=== PATIENT | male | born 1935 | race Caucasian/White ===

== ENCOUNTER 2020-08-08 10:03 | Inpatient (IN) | payer MEDICARE, BC, OTHER ==
--- NOTE | 2020-08-08 10:40 | ED ---
General Adult HPI - General Chief complaint: Altered Mental Status Stated complaint: Altered Time Seen by Provider: 08/08/20 10:21 Source: patient, EMS, RN notes reviewed Mode of arrival: EMS Limitations: altered mental status - History of Present Illness Initial comments: Patient is a pleasant 85-year-old male presenting to the emergency department with concerns for altered mental status. Onset is unclear. Patient states he feels fine and has no complaints. Patient is a poor historian. Patient denies any pain. No reported fever. Patient does not feel weak. Patient reportedly has mentioned with worsening of symptoms. She reportedly has been more aggressive recently. - Related Data Home Medications Medication Instructions Recorded Confirmed Divalproex Sodium [Depakote] 125 mg PO BID 08/08/20 08/08/20 Dolutegravir/Rilpivirine [Juluca 1 tab PO DAILY 08/08/20 08/08/20 50-25 mg Tablet] Ferrous Sulfate [Feosol] 325 mg PO DAILY 08/08/20 08/08/20 Sennosides [Senna] 8.6 mg PO DAILY 08/08/20 08/08/20 Sulfamethox-Tmp 800-160Mg [Bactrim 1 tab PO MOWEFR 08/08/20 08/08/20 DS 800-160 mg] Allergies Allergy/AdvReac Type Severity Reaction Status Date / Time metal AdvReac Rash/Hives Uncoded 08/08/20 11:34 Review of Systems ROS Statement: Those systems with pertinent positive or pertinent negative responses have been documented in the HPI. ROS Other: All systems not noted in ROS Statement are negative. Constitutional: Denies: fever Eyes: Denies: eye pain ENT: Denies: ear pain Respiratory: Denies: cough Cardiovascular: Denies: chest pain Endocrine: Denies: fatigue Gastrointestinal: Denies: abdominal pain Genitourinary: Denies: urgency Musculoskeletal: Denies: back pain Skin: Denies: rash Neurological: Reports: as per HPI Past Medical History Past Medical History: Dementia Additional Past Medical History / Comment(s): HIV+ History of Any Multi-Drug Resistant Organisms: None Reported Past Surgical History: Hernia Repair Past Psychological History: No Psychological Hx Reported Smoking Status: Never smoker Past Alcohol Use History: None Reported Past Drug Use History: None Reported General Exam Limitations: no limitations, altered mental status General appearance: alert Head exam: Present: normocephalic Eye exam: Present: normal appearance, PERRL ENT exam: Present: normal oropharynx Neck exam: Present: normal inspection Respiratory exam: Present: normal lung sounds bilaterally Cardiovascular Exam: Present: regular rate, normal rhythm GI/Abdominal exam: Present: soft. Absent: tenderness Extremities exam: Present: normal inspection Neurological exam: Present: alert, CN II-XII intact. Absent: motor sensory deficit Expanded Neurological exam: Present: protecting the airway Patient oriented to: Present: person. Absent: place (Only knows he is in the hospital, unclear which city), time Speech: Present: fluid speech Motor strength exam: RUE: 5, LUE: 5, RLE: 5, LLE: 5 Eye Response: (4) open spontaneously Motor Response: (6) obeys commands Verbal Response: (4) confused conversation Psychiatric exam: Present: normal affect, normal mood Skin exam: Present: normal color Course Vital Signs 08/08/20 10:09 Temperature 98.1 F Pulse Rate 90 Respiratory 18 Rate Blood Pressure 131/67 O2 Sat by Pulse 97 Oximetry EKG Findings - EKG Comments: EKG Findings:: Normal sinus rhythm with rate of 80. W[place] 172. QRS 98. QT 362. QTC 417. Left axis. Normal QRS. No acute ST change. Medical Decision Making - Medical Decision Making Patient reevaluated and resting comfortably in bed. Patient is more interactive than previously. Patient updated on results and plan. Case was discussed in detail with , covering with [facility] who will admit for Dr. Chavez, who admits for Dr. Turpin. - Lab Data Result diagrams: 08/08/20 12:16 08/08/20 12:16 Lab Results 08/08/20 08/08/20 08/08/20 Range/Units 12:03 12:16 12:16 WBC 12.8 H (3.8-10.6) k/uL RBC 3.13 L (4.30-5.90) m/uL Hgb 9.4 L (13.0-17.5) gm/dL Hct 28.0 L (39.0-53.0) % MCV 89.4 (80.0-100.0) fL MCH 30.1 (25.0-35.0) pg MCHC 33.7 (31.0-37.0) g/dL RDW 13.7 (11.5-15.5) % Plt Count 309 (150-450) k/uL MPV 7.3 Neutrophils % 63 % Lymphocytes % 29 % Monocytes % 5 % Eosinophils % 0 % Basophils % 0 % Neutrophils # 8.1 H (1.3-7.7) k/uL Lymphocytes # 3.8 (1.0-4.8) k/uL Monocytes # 0.6 (0-1.0) k/uL Eosinophils # 0.0 (0-0.7) k/uL Basophils # 0.0 (0-0.2) k/uL PT 10.6 (9.0-12.0) sec INR 1.0 (<1.2) APTT 21.4 L (22.0-30.0) sec Sodium (137-145) mmol/L Potassium (3.5-5.1) mmol/L Chloride (98-107) mmol/L Carbon Dioxide (22-30) mmol/L Anion Gap mmol/L BUN (9-20) mg/dL Creatinine (0.66-1.25) mg/dL Est GFR (CKD-EPI)AfAm (>60 ml/min/1.73 sqM) Est GFR (CKD-EPI)NonAf (>60 ml/min/1.73 sqM) Glucose (74-99) mg/dL Calcium (8.4-10.2) mg/dL Total Bilirubin (0.2-1.3) mg/dL AST (17-59) U/L ALT (4-49) U/L Alkaline Phosphatase (38-126) U/L Ammonia (<30) umol/L Troponin I (0.000-0.034) ng/mL Total Protein (6.3-8.2) g/dL Albumin (3.5-5.0) g/dL Urine Color Yellow Urine Appearance Clear (Clear) Urine pH 5.5 (5.0-8.0) Ur Specific [place] 1.016 (1.001-1.035) Urine Protein Negative (Negative) Urine Glucose (UA) Negative (Negative) Urine Ketones Negative (Negative) Urine Blood Negative (Negative) Urine Nitrite Negative (Negative) Urine Bilirubin Negative (Negative) Urine Urobilinogen <2.0 (<2.0) mg/dL Ur Leukocyte Esterase Negative (Negative) Urine Opiates Screen Not Detected (NotDetected) Ur Oxycodone Screen Not Detected (NotDetected) Urine Methadone Screen Not Detected (NotDetected) Ur Propoxyphene Screen Not Detected (NotDetected) Ur Barbiturates Screen Not Detected (NotDetected) Valproic Acid ug/mL U Tricyclic Antidepress Not Detected (NotDetected) Ur Phencyclidine Scrn Not Detected (NotDetected) Ur Amphetamines Screen Not Detected (NotDetected) U Methamphetamines Scrn Not Detected (NotDetected) U Benzodiazepines Scrn Not Detected (NotDetected) Urine Cocaine Screen Not Detected (NotDetected) U Marijuana (THC) Screen Not Detected (NotDetected) 08/08/20 08/08/20 08/08/20 Range/Units 12:16 12:16 12:16 WBC (3.8-10.6) k/uL RBC (4.30-5.90) m/uL Hgb (13.0-17.5) gm/dL Hct (39.0-53.0) % MCV (80.0-100.0) fL MCH (25.0-35.0) pg MCHC (31.0-37.0) g/dL RDW (11.5-15.5) % Plt Count (150-450) k/uL MPV Neutrophils % % Lymphocytes % % Monocytes % % Eosinophils % % Basophils % % Neutrophils # (1.3-7.7) k/uL Lymphocytes # (1.0-4.8) k/uL Monocytes # (0-1.0) k/uL Eosinophils # (0-0.7) k/uL Basophils # (0-0.2) k/uL PT (9.0-12.0) sec INR (<1.2) APTT (22.0-30.0) sec Sodium 143 (137-145) mmol/L Potassium 5.7 H (3.5-5.1) mmol/L Chloride 113 H (98-107) mmol/L Carbon Dioxide 21 L (22-30) mmol/L Anion Gap 9 mmol/L BUN 42 H (9-20) mg/dL Creatinine 4.03 H (0.66-1.25) mg/dL Est GFR (CKD-EPI)AfAm 15 (>60 ml/min/1.73 sqM) Est GFR (CKD-EPI)NonAf 13 (>60 ml/min/1.73 sqM) Glucose 102 H (74-99) mg/dL Calcium 9.1 (8.4-10.2) mg/dL Total Bilirubin 0.4 (0.2-1.3) mg/dL AST 18 (17-59) U/L ALT 8 (4-49) U/L Alkaline Phosphatase 57 (38-126) U/L Ammonia <9 (<30) umol/L Troponin I <0.012 (0.000-0.034) ng/mL Total Protein 6.1 L (6.3-8.2) g/dL Albumin 3.3 L (3.5-5.0) g/dL Urine Color Urine Appearance (Clear) Urine pH (5.0-8.0) Ur Specific [place] (1.001-1.035) Urine Protein (Negative) Urine Glucose (UA) (Negative) Urine Ketones (Negative) Urine Blood (Negative) Urine Nitrite (Negative) Urine Bilirubin (Negative) Urine Urobilinogen (<2.0) mg/dL Ur Leukocyte Esterase (Negative) Urine Opiates Screen (NotDetected) Ur Oxycodone Screen (NotDetected) Urine Methadone Screen (NotDetected) Ur Propoxyphene Screen (NotDetected) Ur Barbiturates Screen (NotDetected) Valproic Acid <10.0 ug/mL U Tricyclic Antidepress (NotDetected) Ur Phencyclidine Scrn (NotDetected) Ur Amphetamines Screen (NotDetected) U Methamphetamines Scrn (NotDetected) U Benzodiazepines Scrn (NotDetected) Urine Cocaine Screen (NotDetected) U Marijuana (THC) Screen (NotDetected) - Radiology Data Radiology results: report reviewed (Computed tomography scan of the brain shows atrophy.), image reviewed (Chest x-ray shows no acute process) Disposition Clinical Impression: ARF (acute renal failure) Disposition: ADMITTED IP TO THIS [facility] Is patient prescribed a controlled substance at d/c from ED?: No Referrals: Antonio Carey MD [REFERRING] - 1-2 days Decision Time: 15:00
[2020-08-08 12:34] LABS: Basophils % (A) 0 %; Eosinophils % (A) 0 %; HGB 9.4 gm/dL (13.0-17.5); Lymphocytes # (A) 3.8 k/uL (1.0-4.8); Lymphocytes % (A) 29 %; MCH 30.1 pg (25.0-35.0); MCHC 33.7 g/dL (31.0-37.0); MCV 89.4 fL (80.0-100.0); Mean Platelet Volume 7.3; Monocytes # (A) 0.6 k/uL (0-1.0); Monocytes % (A) 5 %; Neutrophils # (A) 8.1 k/uL (1.3-7.7); Neutrophils % (A) 63 %; Platelet Count 309 k/uL (150-450); RBC 3.13 m/uL (4.30-5.90); RDW 13.7 % (11.5-15.5); WBC 12.8 k/uL (3.8-10.6)
[2020-08-08 12:35] LABS: ALT 8 U/L (4-49); AST 18 U/L (17-59); African American GFR (CKD) 15 (>60 ml/min/1.73 sqM); Albumin 3.3 g/dL (3.5-5.0); Alkaline Phosphatase 57 U/L (38-126); Anion Gap 9 mmol/L; Blood Urea Nitrogen 42 mg/dL (9-20); Calcium 9.1 mg/dL (8.4-10.2); Carbon Dioxide 21 mmol/L (22-30); Chloride 113 mmol/L (98-107); Glucose 102 mg/dL (74-99); Non-African American GFR(CKD) 13 (>60 ml/min/1.73 sqM); Potassium 5.7 mmol/L (3.5-5.1); Sodium 143 mmol/L (137-145); Total Bilirubin 0.4 mg/dL (0.2-1.3); Total Protein 6.1 g/dL (6.3-8.2)
[2020-08-08 12:42] LABS: Appearance,Urine Clear (Clear); Bilirubin,Urine Negative (Negative); Blood,Urine Negative (Negative); Color,Urine Yellow; Glucose,Urine (UA) Negative (Negative); Ketones,Urine Negative (Negative); Leukocyte Esterase,Urine Negative (Negative); Nitrite,Urine Negative (Negative); PH, Urine 5.5 (5.0-8.0); Protein,Urine Negative (Negative); Specific Gravity,Urine 1.016 (1.001-1.035); Urobilinogen,Urine <2.0 mg/dL (<2.0)
[2020-08-08 12:52] LABS: Amphetamine Screen,Urine Not Detected (NotDetected); Barbiturate Screen,Urine Not Detected (NotDetected); Benzodiazepines Screen,Urine Not Detected (NotDetected); Cocaine Screen,Urine Not Detected (NotDetected); Methadone Screen, Urine Not Detected (NotDetected); Opiate Screen,Urine Not Detected (NotDetected); Oxycodone Screen, Urine Not Detected (NotDetected); Phencyclidine Screen,Urine Not Detected (NotDetected); Tricyclic Antidepressant,Urine Not Detected (NotDetected); Urn Cannabinoid Scrn Not Detected (NotDetected)
--- NOTE | 2020-08-08 13:00 | XR ---
EXAMINATION TYPE: XR chest 2V DATE OF EXAM: 08/08/2020 COMPARISON: NONE TECHNIQUE: PA and lateral views submitted. HISTORY: Altered mental status FINDINGS: The lungs are clear and there is no pneumothorax, pleural effusion, or focal pneumonia. Heart size is normal. No overt failure. Atherosclerotic change aorta. IMPRESSION: 1. No acute process.
[2020-08-08 13:02] LABS: Prothrombin Time 10.6 sec (9.0-12.0)
[2020-08-08 13:23] LABS: Partial Thromboplastin Time 21.4 sec (22.0-30.0)
--- NOTE | 2020-08-08 13:29 | CT ---
EXAMINATION TYPE: CT brain wo con DATE OF EXAM: 08/08/2020 COMPARISON: None INDICATION: altered mental status DLP: 1098.4 mGycm, Automated exposure control for dose reduction was used. CONTRAST: None CT of the brain is performed utilizing 3 mm thick sections through the posterior fossa and 3 mm thick sections through the remaining calvarium. Study is performed within 24 hours of arrival to the hosp [facility]. No abnormal hyperdensity is present to suggest an acute intracranial hemorrhage. No mass lesion is evident. No acute infarcts are evident. Ventricular white matter hypodensity is present, likely on the basis o f chronic white matter ischemic changes. Ventricles and sulci are prominent for the patient age. Paranasal sinuses and mastoid air cells within the [id number] are clear. IMPRESSIONS: 1. Atrophy with periventricular white matter ischemic changes.
[2020-08-08 13:56] LABS: Valproic Acid (Depakene) <10.0 ug/mL
[2020-08-08] MEDS ORDERED: NALOXONE 0.4 MG/ML 1 ML VIAL IV PRN (15:01)
--- NOTE | 2020-08-08 15:37 | P.HPIM ---
History of Present Illness H&P Date: 08/08/20 Chief Complaint: Lethargy This is an 85-year-old black male who reports to the hospital with possible altered mental status. Patient has been lethargic. He states that he had decreased oral intake. He denies subjective fever or chills. Denies hematuria dysuria hematemesis or hematochezia. The time of examination patient is in bed, mental status appears to be acceptable. Patient does not appear to be in distress. He states that he had some chronic kidney disease but unaware of how long this has been going on. Review of Systems 10 systems reviewed, pertinent positive and negative findings as in HPI. No chest pain no abdominal pain Past Medical History Past Medical History: Dementia Additional Past Medical History / Comment(s): HIV+ History of Any Multi-Drug Resistant Organisms: None Reported Past Surgical History: Hernia Repair Past Psychological History: No Psychological Hx Reported Smoking Status: Never smoker Past Alcohol Use History: None Reported Past Drug Use History: None Reported Medications and Allergies Home Medications Medication Instructions Recorded Confirmed Type Divalproex Sodium [Depakote] 125 mg PO BID 08/08/20 08/08/20 History Dolutegravir/Rilpivirine [Juluca 1 tab PO DAILY 08/08/20 08/08/20 History 50-25 mg Tablet] Ferrous Sulfate [Feosol] 325 mg PO DAILY 08/08/20 08/08/20 History Sennosides [Senna] 8.6 mg PO DAILY 08/08/20 08/08/20 History Sulfamethox-Tmp 800-160Mg [Bactrim 1 tab PO MOWEFR 08/08/20 08/08/20 History DS 800-160 mg] Allergies Allergy/AdvReac Type Severity Reaction Status Date / Time metal AdvReac Rash/Hives Uncoded 08/08/20 11:34 Physical Exam Vitals: Vital Signs Temp Pulse Resp BP Pulse Ox 08/08/20 10:09 98.1 F 90 18 131/67 97 Intake and Output 08/08/20 08/08/20 08/08/20 06:59 14:59 22:59 Other: Weight 77.111 kg Constitutional: No acute distress, conversant, pleasant Eyes: Anicteric sclerae, moist conjunctiva, no lid-lag, PERRLA ENMT: NC/AT Neck:Supple, FROM, no masses Lungs: Clear to auscultation, Clear to percussion, Normal respiratory effort, no accessory muscle use Cardiovascular: Heart regular in rate and rhythm, No murmurs, gallops, or rubs no peripheral edema Abdominal: Soft Nontender, nom distended, no guarding, no rebound or rigidity Skin: Normal temperature, tone, texture, turgor Extremities:No digital cyanosis No clubbing Psychiatric: oriented Neuro: Muscles Strength 5/5 in all 4 extremities, Sensation to light touch grossly present throughout, Cranial nerves II-XII grossly intact. Results CBC & Chem 7: 08/08/20 12:16 08/08/20 12:16 Labs: Abnormal Lab Results - Last 24 Hours (Table) 08/08/20 08/08/20 08/08/20 Range/Units 12:16 12:16 12:16 WBC 12.8 H (3.8-10.6) k/uL RBC 3.13 L (4.30-5.90) m/uL Hgb 9.4 L (13.0-17.5) gm/dL Hct 28.0 L (39.0-53.0) % Neutrophils # 8.1 H (1.3-7.7) k/uL APTT 21.4 L (22.0-30.0) sec Potassium 5.7 H (3.5-5.1) mmol/L Chloride 113 H (98-107) mmol/L Carbon Dioxide 21 L (22-30) mmol/L BUN 42 H (9-20) mg/dL Creatinine 4.03 H (0.66-1.25) mg/dL Glucose 102 H (74-99) mg/dL Total Protein 6.1 L (6.3-8.2) g/dL Albumin 3.3 L (3.5-5.0) g/dL Assessment and Plan Plan: 1. Acute kidney injury likely associated with hypovolemia, serum creatinine 4, unknown what his baseline is, start normal saline, give 1 L bolus and maintained on normal saline at 100 mL per hour. Nephrology consultation. Avoid nephrotoxins. 2. Hyperkalemia: Potassium 5.7, start normal saline and recheck. Bactrim could be contributing to hyperkalemia 3. History of HIV: Infectious disease consultation, continue Bactrim continue Juluca 4. Mild leukocytosis: WBC 12,000, start IV fluids and recheck. 5. History of seizures: Continue Depakote 6. Altered mental status likely multifactorial: Start IV fluids, neurology consultation, monitor clinical condition. Disposition: Pending clinical progression
[2020-08-08] MEDS ORDERED: SODIUM CHLORIDE 0.9% 1,000 ML IV ONE (15:38)
[2020-08-08] MEDS: SULFAMETHOX-TMP 800-160MG 1 EACH TAB PO SCH (17:03)
[2020-08-08] MEDS: SODIUM CHLORIDE 0.9% 1,000 ML IV SCH (17:05)
[2020-08-08] MEDS: DIVALPROEX SPRINKLE 125 MG CAP.SPRINK PO SCH (21:36)
[2020-08-09] MEDS: SODIUM CHLORIDE 0.9% 1,000 ML IV SCH ×3 (05:39→11:28)
[2020-08-09 06:39] LABS: Basophils % (A) 1 %; Eosinophils # (A) 0.1 k/uL (0-0.7); Eosinophils % (A) 1 %; HCT 28.9 % (39.0-53.0); HGB 9.4 gm/dL (13.0-17.5); Lymphocytes % (A) 36 %; MCH 29.3 pg (25.0-35.0); MCHC 32.4 g/dL (31.0-37.0); MCV 90.5 fL (80.0-100.0); Mean Platelet Volume 7.2; Monocytes # (A) 0.4 k/uL (0-1.0); Monocytes % (A) 5 %; Neutrophils # (A) 4.5 k/uL (1.3-7.7); Neutrophils % (A) 54 %; Platelet Count 313 k/uL (150-450); RBC 3.19 m/uL (4.30-5.90); RDW 13.7 % (11.5-15.5); WBC 8.4 k/uL (3.8-10.6)
[2020-08-09] MEDS: DOLUTEGRAVIR PO SCH (08:42)
[2020-08-09] MEDS: RILPIVIRINE PO SCH (08:42)
[2020-08-09 09:14] LABS: Albumin 3.4 g/dL (3.80-4.90); Albumin/Globulin Ratio 1.79 (1.60-3.17); Anion Gap 7.3 mmol/L (4.00-12.00); BUN/Creat Ratio 12.58 Ratio (12.00-20.00); Calcium 8.4 mg/dL (8.7-10.3); Carbon Dioxide 21.7 mmol/L (21.6-31.8); Globulin 1.9 g/dL (1.6-3.3); Non-African American GFR(CKD) 17.3 (60.0-200.0); Potassium 4.8 mmol/L (3.5-5.5); Total Bilirubin 0.2 mg/dL (0.2-1.2); Total Protein 5.3 g/dL (6.2-8.2)
--- NOTE | 2020-08-09 09:48 | P.PN ---
Subjective Progress Note Date: 08/09/20 Feels okay, I will partially oriented. Not in distress. Objective - Vital Signs Vital signs: Vital Signs Temp 97.8 F 08/09/20 04:50 Pulse 83 08/09/20 04:50 Resp 14 08/09/20 04:50 BP 176/65 08/09/20 04:50 Pulse Ox 99 08/09/20 04:50 Intake & Output 08/08/20 08/09/20 08/09/20 18:59 06:59 18:59 Weight 77.111 kg Other: Voiding Method Bedside Commode # Voids 2 - Exam Constitutional: No acute distress, poor Eyes: Anicteric sclerae, moist conjunctiva ENMT: NC/AT Neck:Supple, FROM, no masses Lungs: Clear to auscultation, Clear to percussion, Normal respiratory effort Cardiovascular: Heart regular in rate and rhythm, No murmurs, gallops, or rubs no peripheral edema Abdominal: Soft Nontender, non distended Extremities:No digital cyanosis No clubbing Psychiatric: partially oriented Neuro: Muscles Strength 5/5 in all 4 extremities - Labs CBC & Chem 7: 08/09/20 06:08 08/09/20 06:08 Labs: Abnormal Lab Results - Last 24 Hours (Table) 08/08/20 08/08/20 08/08/20 Range/Units 12:16 12:16 12:16 WBC 12.8 H (3.8-10.6) k/uL RBC 3.13 L (4.30-5.90) m/uL Hgb 9.4 L (13.0-17.5) gm/dL Hct 28.0 L (39.0-53.0) % Neutrophils # 8.1 H (1.3-7.7) k/uL APTT 21.4 L (22.0-30.0) sec Potassium 5.7 H (3.5-5.1) mmol/L Chloride 113 H (98-107) mmol/L Carbon Dioxide 21 L (22-30) mmol/L BUN 42 H (9-20) mg/dL Creatinine 4.03 H (0.66-1.25) mg/dL Est GFR (CKD-EPI)AfAm (60.0-200.0) Est GFR (CKD-EPI)NonAf (60.0-200.0) Glucose 102 H (74-99) mg/dL Calcium (8.7-10.3) mg/dL Total Protein 6.1 L (6.3-8.2) g/dL Albumin 3.3 L (3.5-5.0) g/dL 08/09/20 08/09/20 Range/Units 06:08 06:08 WBC (3.8-10.6) k/uL RBC 3.19 L (4.30-5.90) m/uL Hgb 9.4 L (13.0-17.5) gm/dL Hct 28.9 L (39.0-53.0) % Neutrophils # (1.3-7.7) k/uL APTT (22.0-30.0) sec Potassium (3.5-5.1) mmol/L Chloride 116 H (98-107) mmol/L Carbon Dioxide (22-30) mmol/L BUN 39.0 H (9-20) mg/dL Creatinine 3.1 H (0.66-1.25) mg/dL Est GFR (CKD-EPI)AfAm 20.0 L (60.0-200.0) Est GFR (CKD-EPI)NonAf 17.3 L (60.0-200.0) Glucose (74-99) mg/dL Calcium 8.4 L (8.7-10.3) mg/dL Total Protein 5.3 L (6.3-8.2) g/dL Albumin 3.40 L (3.5-5.0) g/dL Assessment and Plan Plan: 1. Acute kidney injury likely associated with hypovolemia, serum creatinine 4, unknown what his baseline is, continue normal saline,decrease to 75 ml/hr. Nephrology consultation. Avoid nephrotoxins. scr down to 3.1 2. Hyperkalemia: Potassium 5.7, resolved 3. History of HIV: Infectious disease consultation, continue Bactrim continue Juluca 4. Mild leukocytosis: WBC 12,000, resolved 5. History of seizures: Continue Depakote 6. Altered mental status likely multifactorial: Continue IV fluids, neurology consultation 7. Weakness: PT/OT Disposition: Pending clinical progression
--- NOTE | 2020-08-09 11:02 | P.CNNES ---
History of Present Illness Consult date: 08/09/20 Requesting physician: Shay Ontiveros Reason for Consult: altered mental status History of Present Illness: This is a 85-year-old gentleman with history of HIV, dementia presented emergency department on 08/08/2020 for concern of altered mental status and lethargy. Some of the history is obtained from medical records and patient's nurse. The patient has been the having decreased oral intake. His onset of altered mentation is unclear onset. Patient denies any any fever. Per the patient cannot tell me why he presented to the hospital. Per the patient nurse and she stated that the his caregiver felt she was altered recently he has not been taking his HIV medications for the past 3 weeks and has recently restarted on it. She stated that he has HIV diagnosis for about 26 years (he said he was "messing around in the past"). He denies of any seizure in the past or any seizure diagnosis. Currently he denies of any headache or any presentation of headache on presentation. Denies of any nausea, vomiting, any focal weakness, numbness, tingling, difficulty getting his words out or swallowing. Patient is on Depakote 125 mg 1 tablet twice a day which is a very low dose. Patient is also on home medication Bactrim. Regarding Depakote he denies history of seizures. Workup in our facility consisted of: Initial vital signs: Blood pressure of 131/67, heart rate of 90, respiratory of 18, temperature of 98.1 Fahrenheit axillary and pulse ox of 97% at room air. CT of the head is reported as atrophy with periventricular white matter ischemic changes. EKG is reported as normal sinus rhythm with sinus arrhythmia. Left axis deviation. Possible anterior infarct, age undetermined. Abnormal EKG. Initial white blood cell is 12.8 but then the repeated is 8.4. Initial glucose is 102 and the repeat his ADD which is nothing concerning. Calcium is 9.1, sodium is 143, ammonia level is less than 9, AST is 18 and the ALTs 8 which are all normal. BUN is 42 and creatinine is 4.03 Urine drug screen the basic are nondetected. The valproic acid less than 10. Review of Systems Review of system: The 12 point system was reviewed and apparent positive and negative per HPI. Past Medical History Past Medical History: Dementia Additional Past Medical History / Comment(s): HIV+ History of Any Multi-Drug Resistant Organisms: None Reported Past Surgical History: Hernia Repair Past Psychological History: No Psychological Hx Reported Smoking Status: Never smoker Past Alcohol Use History: None Reported Past Drug Use History: None Reported - Past Family History Father Family Medical History: Unable to Obtain Medications and Allergies Home Medications Medication Instructions Recorded Confirmed Type Divalproex Sodium [Depakote] 125 mg PO BID 08/08/20 08/08/20 History Dolutegravir/Rilpivirine [Juluca 1 tab PO DAILY 08/08/20 08/08/20 History 50-25 mg Tablet] Ferrous Sulfate [Feosol] 325 mg PO DAILY 08/08/20 08/08/20 History Sennosides [Senna] 8.6 mg PO DAILY 08/08/20 08/08/20 History Sulfamethox-Tmp 800-160Mg [Bactrim 1 tab PO MOWEFR 08/08/20 08/08/20 History DS 800-160 mg] Allergies Allergy/AdvReac Type Severity Reaction Status Date / Time metal AdvReac Rash/Hives Uncoded 08/08/20 11:34 Physical Examination - Vital Signs Vital Signs: Vital Signs Temp Pulse Pulse Resp BP BP Pulse Ox 08/09/20 04:50 97.8 F 83 14 176/65 99 08/08/20 20:00 98.0 F 89 17 137/67 94 L 08/08/20 16:47 97.8 F 76 18 102/79 97 08/08/20 10:09 98.1 F 90 18 131/67 97 Intake and Output 08/08/20 08/09/20 08/09/20 22:59 06:59 14:59 Other: Voiding Method Bedside Commode # Voids 1 2 Weight 77.111 kg GENERAL: The patient is lying in bed and is not in acute distress. HENT: No nuchal rigidity. CHEST: The heart rate is regular rate rhythm. No murmurs to auscultation. LUNG: Clear to auscultation bilaterally no wheezing noted throughout. Not labored breathing. ABDOMEN/GI: Bowel sounds present in all 4 quadrants. No tenderness to palpation throughout. NEUROLOGICAL: Higher mental function: The patient is awake, alert, oriented to self and place. Not time. Patient is following commands. No aphasia and no neglect. Cranial nerves: The pupils are round, equal and reactive to light and accommodation. Visual velásquez are full to confrontation throughout. Extraocular movement is intact no nystagmus is noted. Facial sensation is normal to touch throughout. The facial strength is normal throughout. Hearing is mildly de creased bilaterally to hand rub. Tongue is midline and moved [id number] without any difficulty. Few episode of dysarthria (but does not have his dentures) is noted. Shoulder shrug is normal bilaterally. Motor: Gait is deferred. The strength is 5 over 5 throughout. Normal tone and bulk. Cerebellum: Normal finger to nose heel to ya bilaterally. Sensation: Sensation is normal to touch throughout. Reflexes (right/left): 2+ throughout except left patellar is 3+. Plantars are downgoing bilaterally. Results Urinalysis is negative for urinary tract infection Valenzuela virus PCR is nondetected - Laboratory Findings CBC and BMP: 08/09/20 06:08 08/09/20 06:08 Abnormal Lab Findings: Abnormal Labs 08/08/20 08/08/20 08/08/20 12:16 12:16 12:16 WBC 12.8 H RBC 3.13 L Hgb 9.4 L Hct 28.0 L Neutrophils # 8.1 H APTT 21.4 L Potassium 5.7 H Chloride 113 H Carbon Dioxide 21 L BUN 42 H Creatinine 4.03 H Est GFR (CKD-EPI)AfAm Est GFR (CKD-EPI)NonAf Glucose 102 H Calcium Total Protein 6.1 L Albumin 3.3 L 08/09/20 08/09/20 06:08 06:08 WBC RBC 3.19 L Hgb 9.4 L Hct 28.9 L Neutrophils # APTT Potassium Chloride 116 H Carbon Dioxide BUN 39.0 H Creatinine 3.1 H Est GFR (CKD-EPI)AfAm 20.0 L Est GFR (CKD-EPI)NonAf 17.3 L Glucose Calcium 8.4 L Total Protein 5.3 L Albumin 3.40 L Assessment and Plan Assessment: Altered mental status likely due to metabolic encephalopathy (with ARMANI) due to decreased oral intake. 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 I ordered HIV 1 RNA qualitative and ultraquant. I ordered vitamin B12, folate, TSH level. His vitamin B12 is low recommend the vitamin B-12 1000 g daily. If vitamin folate is low recommend folic acid 1 mg daily. We'll defer management to the primary team. Patient denies history of seizures and the Depakote that is such a low dose she is on 125 mg twice a day likely due to his mood. Depakote can be increased to 500 mg twice a day which can help with mood as well as helps with antiepileptic but would defer that decision to the primary team. Consider MRI of the brain as an outpatient. I highly recommend the patient to follow-up with a neurologist as an outpatient and possibly consider for the patient to follow-up in the dementia clinic. Infection disease is consulted as well as nephrology is consulted. The plan is discussed with the patient's nurse. There is no further work-up besides what stated above. Neurology will sign off. Please reconsult if needed. Thank you for the consultation. Washington Sidhu MD Neuro-Hospitalist Time with Patient: Greater than 30
[2020-08-09] MEDS: DIVALPROEX SPRINKLE 125 MG CAP.SPRINK PO SCH ×2 (11:23→22:07)
[2020-08-09 12:56] LABS: Folate, Serum 21.5 ng/mL
--- NOTE | 2020-08-09 17:49 | CONS ---
CONSULTATION REASON FOR CONSULT: Renal failure. HISTORY OF PRESENT ILLNESS: Patient is an 85-year-old male who was admitted to the hospital yesterday with complaints of weakness and altered mentation. He did admit to having had some weak kidney function. The patient is unable to give a detailed history at this time. His serum creatinine was 4.0 on initial admission, it is down to 3.1 now. There are no other labs available for comparison. The patient's blood pressure has not been low. He has been voiding on a bedside commode. HOME MEDICATIONS: Included Bactrim. I do not see any NSAIDs or BOB inhibitors or angiotensin receptor blockers. PAST MEDICAL HISTORY: Includes dementia, history of seizures. PAST SURGICAL HISTORY: Hernia repair. SOCIAL HISTORY: Negative for smoking, drug abuse or alcohol abuse. MEDICATIONS: Medications prior to admission included Depakote, Juluca, senna, iron, Bactrim. ALLERGIES: Include METALS causes rash and hives. REVIEW OF SYSTEMS: As per HPI. Other systems negative. Patient is not a good historian. PHYSICAL EXAMINATION: Blood pressure was 168/69, heart rate 83 per minute, he is afebrile. Examination of the heart S1, S2. Examination of lungs, decreased breath sounds at bases. Abdomen is soft, nontender. Examination of lower extremities shows no significant edema. MICROSTRATEGY DEVELOPER exam cannot be performed in detail. Patient does not follow commands. LAB: Show sodium 145, potassium 4.8, chloride 116, BUN 39, serum creatinine 3.1, hemoglobin 9.4 g/dL. UA is completely benign. PCR for coronavirus is negative. ASSESSMENT: 1. Acute kidney injury, prerenal, currently improving. Rule out obstructive uropathy. Check ultrasound of the kidneys. 2. Mental status changes with history of dementia with possible component of uremia, being evaluated by Neurology. 3. History of HIV. Infectious Disease has been consulted. 4. History of seizures, maintained on Depakote. PLAN: Check post-void residual. Check ultrasound of the kidneys. Continue IV fluids. May continue with Bactrim for now as it is only maintained on a Tuesday, Tuesday, Tuesday schedule and repeat labs in a.m. Thank you for this consultation. Will continue to follow the patient with you during his hospitalization. MMODL / IJN: [id number] /
--- NOTE | 2020-08-09 19:48 | CONS ---
CONSULTATION DATE OF SERVICE: 08/09/2020 REASON FOR CONSULTATION: HIV management. HISTORY OF PRESENT ILLNESS: The patient is an 85-year-old male with a past medical history significant for HIV that has been diagnosed many years ago. The patient received most of his care at [facility] under care of Dr. Chin from [place] facility and has been on different antivirals. I did review his chart and information that was sent to us which did shows noncompliant with his medication. He was previously on TVK, and has been last year switched over to Juluca. The patient was seen in the office about a week ago to with new patient for HIV care. At that point, the patient caregiver mentioned the patient was out of his HIV medication for 2 weeks because of problem with insurance. We did obtain baseline blood work and was noticed to have a CD4 count of 30 and HIV viral load about 2000. The patient was scheduled to see me in the office on Tuesday before restarting of his medication. However, the patient has been brought to [facility] on August 08 for evaluation of mental status changes. The patient states he feels fine and has no complaint. However, overall poor historian. Nursing staff mentioned he was very agitated this morning. However, this afternoon, the patient is calm. He knows he is in the hospital. Denies any headache. No chest pain. No shortness of breath or cough. No nausea, vomiting, abdominal pain or diarrhea. The patient has been afebrile since admission to the hospital. He did have elevated white count 12.8, however, repeat is down to 8.4, could be more likely . Patient also has elevated BUN and creatinine and that has shown slight improvement. Kidney functions and electrolytes have been normal. UA was negative. Urine drug screen was negative. Valenzuela PCR was negative. The patient did have a CT of the brain atrophy, periventricular white matter and ischemic changes and a chest x-ray was negative. REVIEW OF SYSTEMS: Positive points have been mentioned in HPI. Rest of systems are negative. PAST MEDICAL HISTORY: Dementia, HIV positive and chronic renal insufficiency, hypertension. PAST SURGICAL HISTORY: Hernia repair. SOCIAL HISTORY: No history of smoking, drinking or drug use. FAMILY HISTORY: No pertinent findings noticed. ALLERGIES: No known drug allergies. MEDICATIONS: The patient is currently on Bactrim DS Tuesday, Tuesday, Tuesday, Juluca, Narcan, Depakote, and IV fluid. PHYSICAL EXAMINATION: Blood pressure 158/69 with pulse of 73. Temperature is 97.6. He is 99% on room air. GENERAL DESCRIPTION: The patient is an elderly male lying in bed in no distress. HEENT examination: Pallor, no scleral icterus. Oral mucosal membranes dry. NECK: Trachea central. No thyromegaly. LUNGS: Unlabored breathing. Clear to auscultation anteriorly with no wheeze or crackles. Heart S1, S2. Regular rate and rhythm. ABDOMEN: Soft, no tenderness. No guarding. No rigidity. EXTREMITIES: No edema of the feet. SKIN examination: No rash or mass palpable. NEUROLOGICAL: Patient is awake, alert and oriented times three. Mood and affect normal. LABS: Hemoglobin 11.4, white count 8.4, BUN of 39, creatinine 3.1. Urine drug screen was negative. UA was negative. DIAGNOSTIC IMPRESSION AND PLAN: Patient with HIV for many years in this patient clinically acquired immune deficiency syndrome and has been 30. The patient has not been able to take his medication for the last week because of insurance reasons and has received most of his care at [facility], now with mental status changes, question of major dementia. However other diseases associated with HIV need to be considered and the patient may need to benefit from a neurology evaluation as well as an MRI. PLAN: 1. Patient to continue with Juluca one daily along with Bactrim DS 1 Tuesday, Tuesday, Tuesday. 2. IV fluid. 3. Recommend neurology evaluation and possible consideration for MRI. 4. We will follow his clinical condition and further adjust medication if needed. Thank you for this consultation. We will follow the patient along with you. MMODL / IJN: [id number] /
--- NOTE | 2020-08-09 20:57 | US ---
EXAMINATION TYPE: US kidneys/renal and bladder DATE OF EXAM: 08/09/2020 COMPARISON: NONE CLINICAL HISTORY: RF. Patient refused US of right kidney and bladder and only allowed limited views o f left kidney with patient in RLD position, and declined moving left arm upwards for optimal left lluvia al US. EXAM MEASUREMENTS: Right Kidney: not assessed due to above limitations Left Kidney: 6.5 x 3.7 x 4.7 cm Left Kidney: No hydronephrosis or masses seen in limited left kidney views. IMPRESSION: Limited exam shows no evidence of left-sided renal obstruction. Right kidney was not evaluated due to lack of patient cooperation.
[2020-08-10] MEDS: SODIUM CHLORIDE 0.9% 1,000 ML IV SCH ×2 (00:21→11:29)
--- NOTE | 2020-08-10 09:40 | P.PN ---
Subjective Progress Note Date: 08/10/20 More awake today, partially oriented. No chest pain no abdominal pain, no nausea or vomiting. Objective - Vital Signs Vital signs: Vital Signs Temp 97.6 F 08/09/20 11:41 Pulse 75 08/10/20 00:25 Resp 18 08/10/20 00:25 BP 116/68 08/10/20 00:25 Pulse Ox 97 08/10/20 00:25 Intake & Output 08/09/20 08/10/20 08/10/20 18:59 06:59 18:59 Intake Total 750 Output Total 50 Balance 700 Intake: Intake, IV Titration 750 Amount Sodium Chloride 0.9% 1, 750 000 ml @ 75 mls/hr IV . [id number] CLAUDIA Rx#:[id number] Output: Urine 50 Other: Voiding Method Bedside Commode Bedside Commode # Voids 1 1 - Exam Constitutional: No acute distress, poor historian Eyes: Anicteric sclerae, moist conjunctiva ENMT: NC/AT Neck:Supple, FROM, no masses Lungs: Clear to auscultation, Clear to percussion, Normal respiratory effort Cardiovascular: Heart regular in rate and rhythm, No murmurs, gallops, or rubs Abdominal: Soft Nontender, non distended Extremities:No digital cyanosis No clubbing Psychiatric: partially oriented Neuro: Muscles Strength 5/5 in all 4 extremities - Labs CBC & Chem 7: 08/09/20 06:08 08/09/20 06:08 Assessment and Plan Plan: 1. Acute kidney injury likely associated with hypovolemia, serum creatinine 4, unknown what his baseline is, continue normal saline,decrease to 50 ml/hr. Nephrology consultation, input appreciated. Avoid nephrotoxins. scr down to 3.1 yesterday 2. Hyperkalemia: Potassium 5.7, resolved 3. History of HIV: Infectious disease consultation, continue Bactrim continue Juluca 4. Mild leukocytosis: WBC 12,000, resolved 5. History of seizures: Continue Depakote 6. 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 7. Weakness: PT/OT Disposition: Pending clinical progression, likely needing rehab
[2020-08-10] MEDS: RILPIVIRINE PO SCH (11:29)
[2020-08-10] MEDS: DOLUTEGRAVIR PO SCH (11:29)
[2020-08-10] MEDS: DIVALPROEX SPRINKLE 125 MG CAP.SPRINK PO SCH ×2 (11:36→20:35)
--- NOTE | 2020-08-10 13:36 | PN ---
PROGRESS NOTE Patient is seen for followup for acute kidney injury. He was admitted to the hospital with weakness and mental status changes. Serum creatinine was about 4 on initial admission. It has now been decreased to 3.1 as of yesterday. No labs available from today. PHYSICAL EXAMINATION: This morning patient is comfortable. Blood pressure was elevated at 170/77. Previous blood pressure 116/68. Examination of the heart S1, S2. Examination of the lungs, bilateral breath sounds are heard. Abdomen is soft, nontender. Examination of lower extremities shows no significant edema. MANUFACTURING RECRUITER exam shows patient is confused. He is moving all 4 extremities. LAB: Show sodium 145, potassium 4.8, BUN 39, creatinine 3.1, hemoglobin 9.4 g/dL UA completely negative. ASSESSMENT: 1. Acute kidney injury, prerenal, currently improved with IV hydration. 2. Possible underlying chronic kidney disease. Previous labs not available for comparison. 3. History of HIV. 4. Seizure disorder, maintained on Depakote. PLAN: Check labs today. Encourage increased oral intake. Check iron profile for workup for anemia. The UA is completely benign and ultrasound also is unremarkable. Right kidney was not visualized secondary to patient being uncooperative. MMODL / IJN: [id number] /
--- NOTE | 2020-08-10 18:41 | PN ---
PROGRESS NOTE DATE OF SERVICE: 08/10/2020 REASON FOR FOLLOWUP: HIV. INTERVAL COURSE: The patient is afebrile. The patient did have significant agitation this morning and had to be calmed down by the nursing staff. At the time of ,y evaluation, the patient is pleasant. Denies having any headache. No chest pain or cough. No abdominal pain. No diarrhea. PHYSICAL EXAMINATION: Blood pressure 117/77, pulse of 73, temperature 98.2. He is 99% on room air. General description: The patient is an elderly male lying in bed in no distress. Respiratory system: Unlabored breathing, clear to auscultation anteriorly. Heart S1, S2. Regular rate and rhythm. Abdomen: Soft, no tenderness. LABS: Hemoglobin 9.4, white count 8.4, BUN of 39, creatinine 3.1. DIAGNOSTIC IMPRESSION AND PLAN: Patient with HIV diagnosed more than 26 years ago, has been on multiple regime. Currently on Bactrim DS, and Juluca. Unfortunately we do not have HIV medication available at this facility. In view of significant mental status changes, will benefit from MRI which will be ordered without contrast because of his kidney function and continue supportive care. MMODL / IJN: [id number] /
[2020-08-11] MEDS: SODIUM CHLORIDE 0.9% 1,000 ML IV SCH (07:09)
[2020-08-11] MEDS: DOLUTEGRAVIR PO SCH (07:54)
[2020-08-11] MEDS: RILPIVIRINE PO SCH (07:54)
[2020-08-11] MEDS: SULFAMETHOX-TMP 800-160MG 1 EACH TAB PO SCH (07:56)
[2020-08-11] MEDS: DIVALPROEX SPRINKLE 125 MG CAP.SPRINK PO SCH ×2 (07:56→22:12)
--- NOTE | 2020-08-11 10:21 | P.PN ---
Subjective Progress Note Date: 08/11/20 Awake, no chest pain no abdominal pain. Partially oriented. Objective - Vital Signs Vital signs: Vital Signs Temp 97.5 F L 08/11/20 05:00 Pulse 73 08/11/20 05:00 Resp 18 08/11/20 05:00 BP 151/66 08/11/20 05:00 Pulse Ox 98 08/11/20 05:00 Intake & Output 08/10/20 08/11/20 08/11/20 18:59 06:59 18:59 Other: Voiding Method Bedside Commode Bedside Commode Incontinent Incontinent # Voids 3 2 - Exam Constitutional: No acute distress, poor historian partially oriented Eyes: Anicteric sclerae, moist conjunctiva ENMT: NC/AT Neck:Supple, FROM, no masses Lungs: Clear to auscultation, Clear to percussion Cardiovascular: S1S2, No murmurs, gallops, or rubs Abdominal: Soft Nontender, non distended Extremities:No digital cyanosis No clubbing Psychiatric: partially oriented Neuro: Muscles Strength 5/5 in all 4 extremities - Labs CBC & Chem 7: 08/09/20 06:08 08/09/20 06:08 Assessment and Plan Plan: 1. Acute kidney injury likely associated with hypovolemia, serum creatinine 4, unknown what his baseline is, continue normal saline,decrease to 50 ml/hr. Nephrology consultation, input appreciated. Avoid nephrotoxins. scr down to 3.1 pending labs. 2. Hyperkalemia: Potassium 5.7, resolved 3. History of HIV: Infectious disease consultation, continue Bactrim continue Juluca . 4. Mild leukocytosis: WBC 12,000, resolved 5. History of seizures: Continue Depakote 6. 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 7. Weakness: PT/OT Disposition: Pending clinical progression, likely needing rehab
[2020-08-11 11:24] LABS: African American GFR (CKD) 26 (>60 ml/min/1.73 sqM); Anion Gap 7 mmol/L; Blood Urea Nitrogen 25 mg/dL (9-20); Calcium 9.2 mg/dL (8.4-10.2); Carbon Dioxide 22 mmol/L (22-30); Chloride 113 mmol/L (98-107); Glucose 85 mg/dL (74-99); Non-African American GFR(CKD) 22 (>60 ml/min/1.73 sqM); Potassium 4.5 mmol/L (3.5-5.1); Sodium 142 mmol/L (137-145)
--- NOTE | 2020-08-11 17:03 | PN ---
PROGRESS NOTE DATE OF SERVICE: 08/11/2020 REASON FOR FOLLOWUP: 1. HIV AIDS. 2. Mental status changes, questionably FURNITURE ASSOCIATE infection versus dementia. INTERVAL HISTORY: The patient remains afebrile. The patient is breathing comfortably. Denies having any chest pain or cough. No headache. No abdominal pain or diarrhea. PHYSICAL EXAMINATION: Blood pressure 122/63, pulse of 86, temperature 97.5. He is 92% on room air. General description is an elderly male lying in bed in no distress. RESPIRATORY SYSTEM: Unlabored breathing. Clear to auscultation anteriorly. HEART: S1, S2. Regular rate and rhythm. ABDOMEN: Soft. No tenderness. LABS: BUN of 25, creatinine 2.51. DIAGNOSTIC IMPRESSION AND PLAN: 1. 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 Patient can bring the medication from home. 2. Patient with mental status changes with a low CD4 count. MRI of the brain has been ordered. Will follow the results. Continue supportive care. MMODL / IJN: [id number] /
--- NOTE | 2020-08-11 18:06 | PN ---
PROGRESS NOTE Patient is seen for followup for acute kidney injury. Renal function has improved. Patient is maintained on IV hydration. He has underlying history of HIV. He is currently comfortable, not in any acute distress. PHYSICAL EXAMINATION: On examination today, blood pressure was 122/63, heart rate of 73 per minute. He is afebrile. EXAMINATION OF THE HEART: S1 and S2. EXAMINATION OF LUNGS: Bilateral breath sounds are heard. ABDOMEN: Soft, non-tender. Examination of lower extremities shows no evidence of edema. SNAP ATTACHER exam shows patient is confused. He is able to move all 4 extremities. LABS: Sodium 142, potassium 4.5, BUN 25, creatinine 2.51. ASSESSMENT: 1. Acute kidney injury, prerenal, currently improved. No urine retention. Ultrasound is unremarkable. 2. Hyperkalemia on initial admission associated with acute kidney injury, now improved. 3. Seizure disorder. 4. History of HIV. 5. Possible underlying chronic kidney disease. PLAN: Continue with gentle IV hydration. Encourage increased oral intake. Follow up for CKD as outpatient. MMODL / IJN: [id number] /
[2020-08-12] MEDS: SODIUM CHLORIDE 0.9% 1,000 ML IV SCH (05:37)
[2020-08-12 06:31] LABS: Basophils # (A) 0.1 k/uL (0-0.2); Basophils % (A) 1 %; Eosinophils # (A) 0.2 k/uL (0-0.7); Eosinophils % (A) 2 %; HGB 9.5 gm/dL (13.0-17.5); Hypochromasia Slight; Lymphocytes # (A) 3.5 k/uL (1.0-4.8); Lymphocytes % (A) 34 %; MCH 28.4 pg (25.0-35.0); MCHC 30.7 g/dL (31.0-37.0); MCV 92.6 fL (80.0-100.0); Mean Platelet Volume 7.6; Monocytes # (A) 0.6 k/uL (0-1.0); Monocytes % (A) 5 %; Neutrophils # (A) 5.8 k/uL (1.3-7.7); Neutrophils % (A) 56 %; Platelet Count 350 k/uL (150-450); RBC 3.35 m/uL (4.30-5.90); RDW 14.1 % (11.5-15.5); WBC 10.4 k/uL (3.8-10.6)
[2020-08-12] MEDS: DOLUTEGRAVIR PO SCH (08:17)
[2020-08-12] MEDS: RILPIVIRINE PO SCH (08:17)
[2020-08-12] MEDS: DIVALPROEX SPRINKLE 125 MG CAP.SPRINK PO SCH ×3 (08:18→21:31)
--- NOTE | 2020-08-12 11:35 | P.PN ---
Subjective Progress Note Date: 08/12/20 Awake, no chest pain no abdominal pain. Partially oriented. No major clinical changes. Up in chair, not in distress. Objective - Vital Signs Vital signs: Vital Signs Temp 98.5 F 08/12/20 05:35 Pulse 71 08/12/20 05:35 Resp 17 08/12/20 05:35 BP 138/75 08/12/20 05:35 Pulse Ox 97 08/12/20 05:35 Intake & Output 08/11/20 08/12/20 08/12/20 18:59 06:59 18:59 Intake Total 720 500 Output Total 50 Balance 720 450 Intake: Oral 720 500 Output: Urine 50 Other: Voiding Method Bedside Commode Toilet Diaper Incontinent Bedside Commode Incontinent Diaper # Voids 1 2 # Bowel Movements 1 1 - Exam Constitutional: No acute distress, poor historian partially oriented Eyes: Anicteric sclerae ENMT: NC/AT Neck:Supple, FROM, no masses Lungs: Clear to auscultation, Clear to percussion, no wheezing Cardiovascular: S1S2, No murmurs, gallops, or rubs Abdominal: Soft Nontender, non distended Extremities:No digital cyanosis No clubbing Psychiatric: partially oriented Neuro: Muscles Strength 5/5 in all 4 extremities - Labs CBC & Chem 7: 08/12/20 05:51 08/11/20 10:08 Labs: Abnormal Lab Results - Last 24 Hours (Table) 08/12/20 Range/Units 05:51 RBC 3.35 L (4.30-5.90) m/uL Hgb 9.5 L (13.0-17.5) gm/dL Hct 31.0 L (39.0-53.0) % MCHC 30.7 L (31.0-37.0) g/dL Assessment and Plan Plan: 1. Acute kidney injury likely associated with hypovolemia, serum creatinine 4, unknown what his baseline is, continue normal saline 50 ml/hr. Nephrology consultation, input appreciated. Avoid nephrotoxins. scr down to 2.5 pending labs today. 2. Hyperkalemia: Potassium 5.7, resolved 3. History of HIV: Infectious disease consultation, continue Bactrim continue Juluca . 4. Mild leukocytosis: WBC 12,000, resolved 5. History of seizures: Continue Depakote 6. 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 7. Weakness: PT/OT Disposition: Pending clinical progression, pending rehab
[2020-08-12] MEDS ORDERED: ALPRAZolam 0.5 MG TAB PO PRN (15:07)
--- NOTE | 2020-08-12 15:23 | PN ---
PROGRESS NOTE Patient is seen for followup for acute kidney injury. Renal function has improved with creatinine down to 2.5 as of yesterday from around 4.0 on initial admission. Patient is currently maintained on IV fluids. He is eating well. No significant complaints. PHYSICAL EXAMINATION: Blood pressure was 138/75, heart rate 71 per minute, he is afebrile. Examination of the heart S1, S2. Examination of the lungs, bilateral breath sounds are heard. Abdomen is soft, nontender. Examination of lower extremities shows no evidence of edema. ONCOLOGY ACCOUNT SPECIALIST exam grossly intact. Patient is confused. Moving all four extremities. LAB: From yesterday show sodium 142, potassium 4.5, BUN 25, creatinine 2.5. ASSESSMENT: 1. Acute kidney injury, prerenal, currently improved. Ultrasound is unremarkable. Right kidney could not be assessed due to patient not being cooperative. Left kidney was slightly on the smaller side, but no evidence of obstruction. 2. Seizure disorder. 3. History of HIV. 4. Possible underlying chronic kidney disease. No previous labs available. PLAN: Continue to encourage increased oral intake. MMODL / IJN: [id number] /
--- NOTE | 2020-08-12 16:30 | PN ---
PROGRESS NOTE DATE OF SERVICE: 08/12/2020 REASON FOR FOLLOW UP: 1. HIV. 2. Mental status changes. INTERVAL HISTORY: The patient is afebrile. The patient has been pleasantly confused. No agitation has been noted . Denies any chest pain or cough. No abdominal pain or diarrhea. PHYSICAL EXAMINATION: Blood pressure 157/87, pulse of 98, temperature 98.1, he is 93% on room air. General description is an elderly male lying in bed in no distress. Respiratory system: Unlabored breathing, clear to auscultation anteriorly. Heart S1, S2. Regular rate and rhythm. Abdomen is soft, no tenderness. LABS: Hemoglobin 9.4, white count 10.4. DIAGNOSTIC IMPRESSION AND PLAN: 1. Patient with HIV AIDS. The patient has been on needs the patient has been on Julica and Bactrim, unfortunately not available. Will be restarted in the outpatient setting. 2. Patient with mental status changes with concern for advanced dementia versus HIV. MRI has been ordered but not completed. Will discuss with staff the reason for delay and continue supportive care. MMODL / IJN: [id number] /
[2020-08-13] MEDS: SODIUM CHLORIDE 0.9% 1,000 ML IV SCH (01:11)
--- NOTE | 2020-08-13 08:20 | MR ---
EXAMINATION TYPE: MR brain wo con DATE OF EXAM: 08/13/2020 COMPARISON: CT brain 4 days ago HISTORY: AIDS/Mental status changes TECHNIQUE: Multiplanar, multisequence imaging of the brain and brainstem is performed without IV cont rast. FINDINGS: Exam suboptimal inspiration would not hold still. Diffusion weighted images demonstrate no evidence of a recent infarct or other diffusion abnormality. There is persistent moderate to borderline severe diffuse ventricular and sulcal prominence with vent ricular prominence out of proportion to degree of sulcal effacement. No significant change from most recent CT. Focal and confluent T2 hyperintense opacities throughout the brain parenchyma are present. Midline structures demonstrate normal morphology. The craniocervical junction appears within normal limits. Normal vascular flow voids are present. The visualized sinuses are clear and the globes are i ntact. Some patchy fluid signal left mastoid air cells remains present. IMPRESSION: No MRI evidence for a recent infarct. Moderate to severe diffuse cerebral atrophy with un derlying normal pressure hydrocephalus not excluded. Correlation with old outside CT or MRI would be beneficial. Mild to moderate nonspecific white matter changes favor product of chronic small vessel i schemic change in patient of this age. Possible left-sided mastoiditis, correlate clinically.
[2020-08-13] MEDS: RILPIVIRINE PO SCH (11:55)
[2020-08-13] MEDS: DOLUTEGRAVIR PO SCH (11:55)
[2020-08-13] MEDS: SULFAMETHOX-TMP 800-160MG 1 EACH TAB PO SCH (12:01)
[2020-08-13] MEDS: DIVALPROEX SPRINKLE 125 MG CAP.SPRINK PO SCH (12:01)
[2020-08-13 12:14] VITALS: BP 171/62; PULSE 83; RESP 17; TEMP 98.3
--- NOTE | 2020-08-13 14:05 | P.DS ---
Providers Date of admission: 08/08/20 15:09 Expected date of discharge: 08/13/20 Attending physician: Raisa Armenta MD Consults: 08/08/20 15:03 Consult Physician Routine Consulting Provider: Shivani Valle Consult Reason/Comments: eval for hiv Do you want consulting provider notified?: Yes 08/08/20 15:07 Consult Physician Routine Consulting Provider: Washington Sidhu Consult Reason/Comments: ams Do you want consulting provider notified?: Yes 08/08/20 15:09 Consult Physician Urgent Consulting Provider: Gabriela Staley Consult Reason/Comments: arf Do you want consulting provider notified?: Yes Primary care physician: Dave [facility] Course: This is a 85-year-old male with past medical history noted below who presented to the emergency room with altered mental status. Patient was evaluated in the ER and admitted to the hospital for further management of his medical problems noted below 1. Acute kidney injury likely associated with hypovolemia, improved with IV fluid hydration. Baseline creatinine unknown. Patient was seen and evaluated by nephrology. Patient unfortunately kept refusing lab draws the last 2 days of his hospitalization and no recent blood work was done. He refused again this morning. 2. Hyperkalemia: resolved 3. History of HIV: Infectious disease consultation, continue Bactrim continue Juluca . 4. Mild leukocytosis: WBC 12,000, resolved 5. History of seizures: Continue Depakote 6. 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 7. Weakness: PT/OT Today, I discussed his current clinical condition with his legal guardian over the phone. He informed me that he is back to his normal baseline. We discussed some of the findings on the MRI of the brain and advised her that they should follow up with neurology outpatient. Patient will be discharged in a stable condition otherwise. Patient Condition at Discharge: Stable Plan - Discharge Summary New Discharge Prescriptions: Continue Divalproex Sodium [Depakote] 125 mg PO BID Sennosides [Senna] 8.6 mg PO DAILY Sulfamethox-Tmp 800-160Mg [Bactrim DS 800-160 mg] 1 tab PO MOWEFR Ferrous Sulfate [Iron (65 MG Elemental)] 325 mg PO DAILY Dolutegravir/Rilpivirine [Juluca 50-25 mg Tablet] 1 tab PO DAILY Discharge Medication List Divalproex Sodium [Depakote] 125 mg PO BID 08/08/20 [History] Dolutegravir/Rilpivirine [Juluca 50-25 mg Tablet] 1 tab PO DAILY 08/08/20 [History] Ferrous Sulfate [Iron (65 MG Elemental)] 325 mg PO DAILY 08/08/20 [History] Sennosides [Senna] 8.6 mg PO DAILY 08/08/20 [History] Sulfamethox-Tmp 800-160Mg [Bactrim DS 800-160 mg] 1 tab PO MOWEFR 08/08/20 [History] Follow up Appointment(s)/Referral(s): Antonio Carey MD [REFERRING] - 1-2 days Discharge Disposition: HOME WITH HOME HEALTH SERVICES
--- NOTE | 2020-08-13 17:12 | PN ---
PROGRESS NOTE DATE OF SERVICE: 08/13/2020 REASON FOR FOLLOWUP: HIV/AIDS. INTERVAL HISTORY: The patient is afebrile. The patient is slightly upset this morning and ( ) with exam. More agitation was reported by the nursing staff compared to yesterday though. No vomiting or diarrhea. PHYSICAL EXAMINATION: Blood pressure 130/62 with a pulse of 83, temperature 98.3. He is 98% on room air. General description is an elderly male lying in bed in no distress. Respiratory system: Unlabored breathing, clear to auscultation anteriorly. Heart S1, S2. Regular rate and rhythm. Abdomen soft, no tenderness. LABS: Hemoglobin 9.5, white count 10.4, BUN of 25, creatinine is 2.51. DIAGNOSTIC IMPRESSION AND PLAN: Patient with HIV/AIDS. This patient has had this disease for 26 years, has been on multiple treatment and noncompliance. He is on currently Jak along with Bactrim DS Tuesday, Tuesday and Tuesday with close outpatient followup. MMODL / IJN: [id number] /
--- NOTE | 2020-08-13 20:18 | PN ---
PROGRESS NOTE Patient is seen for followup for acute kidney injury, mostly prerenal. Currently improved. The patient is currently lying in bed. He is comfortable, not in any acute distress. Blood pressure 138/99, heart rate 84 per minute. He is afebrile. Examination of the heart S1, S2. Examination of the lungs, bilateral breath sounds are heard. Abdomen is soft, nontender. Examination of lower extremities shows no significant edema. LAB: Show hemoglobin 9.5, sodium 142, potassium 4.5, chloride 113, BUN 25, creatinine 2.5. ASSESSMENT: 1. Acute kidney injury prerenal currently improved with IV hydration. 2. History of HIV. 3. Possible underlying chronic kidney disease . No previous labs available for comparison. PLAN: Continue to encourage increased oral intake. No changes from nephrology standpoint. MMODL / IJN: [id number] /
== END 2020-08-13 16:00 | disposition home health service (06) | DRG 682 ==
LOC: EC 10:03 → 5NMEDONC 15:09
PROVIDERS: ADMIT Internal Medicine; ATTEND Internal Medicine
DX: N17.9 Acute kidney failure, unspecified (principal); G93.41 Metabolic encephalopathy; B20 Human immunodeficiency virus [HIV] disease; F03.90 Unspecified dementia, unspecified severity, without behavioral disturbance, psychotic disturbance, mood disturbance, and anxiety; G40.909 Epilepsy, unspecified, not intractable, without status epilepticus; Z20.822 Contact with and (suspected) exposure to COVID-19; E87.5 Hyperkalemia; E86.1 Hypovolemia; D72.829 Elevated white blood cell count, unspecified; I12.9 Hypertensive chronic kidney disease with stage 1 through stage 4 chronic kidney disease, or unspecified chronic kidney disease; N18.9 Chronic kidney disease, unspecified; R32 Unspecified urinary incontinence; T37.5X6A Underdosing of antiviral drugs, initial encounter; Z91.120 Patient's intentional underdosing of medication regimen due to financial hardship; Z91.19 Patient's noncompliance with other medical treatment and regimen; Z79.899 Other long term (current) drug therapy; Z87.19 Personal history of other diseases of the digestive system; Z98.890 Other specified postprocedural states; Z91.048 Other nonmedicinal substance allergy status
CPT/HCPCS: 36415; 70450; 70551; 71046; 76770; 80048; 80053; 80164; 80306; 81003; 82140; 82607; 82746; 84443; 84484; 85025; 85610; 85730; 87635; 93005; 99285